=== PATIENT | male | born 1955 | race Hispanic/Latino ===

== ENCOUNTER 2021-03-25 07:26 | Day surgery (SDC) | payer OTHER ==
[2021-03-22 09:15] VITALS: BMI 24.3
[2021-03-25] MEDS ORDERED: Lidocaine 1% MPF 2 ML VIAL ONE (08:22)
[2021-03-25] MEDS ORDERED: PROPOFOL 20 ML ONE (08:57)
[2021-03-25] MEDS ORDERED: PHENYLEPHRINE-NS 100 MCG/ML 10 ML SYRINGE ONE (09:04)
== END 2021-03-25 11:15 | disposition home or self-care (01) ==
LOC: CSHSDC 07:26
PROVIDERS: ATTEND Internal Medicine Gastroenterology
DX: Z12.11 Encounter for screening for malignant neoplasm of colon (principal); D12.2 Benign neoplasm of ascending colon; D12.3 Benign neoplasm of transverse colon; K64.9 Unspecified hemorrhoids
CPT/HCPCS: 88305; J2704